=== PATIENT | female | born 1945 | race Two or more races ===

== ENCOUNTER 2025-06-10 09:10 | Emergency (ER) | payer OTHER ==
[~2025-06-10] VITALS: Ht 162.6 cm; Wt 58.8 kg
--- NOTE | 2025-06-10 09:50 | ED.PDOC ---
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 Son reports patient had went to her pre-op appointment today and was found to have an abnormal heart rate, going high and low quickly. Son relays that the patient has never been diagnosed with A-Fib. Son states they were advised to come to the ED for clearance of the patient to have her surgery performed at a later date. Patient denies any chest pain, SOB, dizziness, N/V/D, abdominal pain, or syncope. 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 Hx Family History Family History: Reviewed,noncontributory to illness Social History Smoker: Non-Smoker Alcohol: Denies ETOH Use Drugs: Denies Drug Use Lives In: Home Constitutional: denies: chills, diaphoresis, fatigue, fever, malaise, sweats, weakness, others EENTM: denies: blurred vision, double vision, ear bleeding, ear discharge, ear drainage, ear pain, ear ringing, eye pain, eye redness, hearing loss, mouth mary n, mouth swelling, nasal discharge, nose bleeding, nose congestion, nose pain, photophobia, tearing, throat pain, throat swelling, voice changes, others Respiratory: denies: cough, hemoptysis, orthopnea, SOB at rest, shortness of breath, SOB with excertion, stridor, wheezing, others Cardiovascular: denies: chest pain, dizzy spells, diaphoresis, Dyspnea on exertion, edema, irregular heart beat, left arm pain, lightheadedness, palpitations, PND, syncope, others Gastrointestinal: denies: abdomen distended, abdominal pain, blood streaked bowels, constipated, diarrhea, dysphagia, difficulty swallowing, hematemesis, melena, nausea, poor appetite, poor fluid intake, rectal bleeding, rectal pain, vomiting, others Genitourinary: denies: abnormal vagina bleeding, burning, dyspareunia, dysuria, flank pain, frequency, hematuria, incontinence, pain, , vagina discharge, urgency, others Neurological: denies: dizziness, fainting, headache, left sided numbness, left sided weakness, numbness, paresthesia, pre-existing deficit, right sided numbness, right sided weakness, seizure, speech problems, tingling, tremors, weakness, others Musculoskeletal: denies: back pain, gout, joint pain, joint swelling, muscle pain, muscle stiffness, neck pain, others Integumetry: denies: bruises, change in color, change in hair/nails, dryness, laceration, lesions, lumps, rash, wounds, others Allergic/Immunocompromised: denies: Difficulty Healing, Frequent Infections, Hives, Itching, others Hematologic/Lymphatic: denies: anemia, blood clots, easy bleeding, easy bruising, swollen glands, others Endocrine: denies: excessive hunger, excessive sweating, excessive thirst, excessive urination, flushing, intolerance to cold, intolerance to heat, unexplained weight gain, unexplained weight loss, others Psychiatric: denies: anxiety, bipolar disorder, depression, hopeless, panic disorder, schizophrenia, sleepless, suicidal, others All Other Systems: Reviewed and Negative Physical Exam General Appearance: No Apparent Distress, Normal HEENT: Normal ENT Inspection, Pharynx Normal, TMs Normal Neck: Full Range of Motion, Non-Tender, Normal, Normal Inspection Respiratory: Chest Non-Tender, Lungs Clear, No Accessory Muscle Use, No Respiratory Distress, Normal Breath Sounds Cardiovascular: No Edema, No JVD, No Murmur, No Gallop, Normal Peripheral Pulses, Regular Rate/Rhythm Breast Exam: Deferred Gastrointestinal: No Organomegaly, Non Tender, No Pulsatile Mass, Normal Bowel Sounds, Soft Genitalia: Deferred Pelvic: Deferred Rectal: Deferred Extremities: No calf tenderness, Normal capillary refill, Normal inspection, Normal range of motion, Non-tender, No pedal edema Musculoskeletal : Apperance: Normal Neurologic: Alert, clinical lab assistant II-XII nml as Tested, No Motor Deficits, Normal Affect, Normal Mood, No Sensory Deficits Cerebellar Function: Normal Reflexes: Normal Skin: Dry, Normal Color, Warm Lymphatic: No Adenopathy Was a procedure done? Was a procedure done?: No CP Differential Dx Differential Diagnosis: A-fib X-Ray, Labs, Meds, VS Vital Signs Date Time Temp Pulse Resp B/P (MAP) Pulse Ox O2 Delivery O2 Flow Rate FiO2 06/10/25 14:20 51 06/10/25 14:02 97.5 58 14 122/62 (82) 96 97.5 06/10/25 09:16 97.5 102 18 125/83 96 97.5 Lab Test 06/10/25 13:24 06/10/25 10:30 06/10/25 10:07 06/10/25 09:39 Range/Units Troponin I High Sensitivity 22 17 17 </=34 ng/L Urine Color Light-yellow Yellow Urine Clarity Clear Clear Urine pH 5.0 5.0-9.0 Urine Specific Golden 1.012 1.001-1.035 Urine Protein Negative Negative Urine Ketones 1+ H Negative Urine Blood Negative Negative /uL Urine Nitrite Negative Negative Urine Bilirubin Negative Negative Urine Urobilinogen Normal Negative mg/dL Urine Leukocyte Esterase 1+ Negative /uL Urine RBC 1 0 - 4 /hpf Urine Microscopic WBC 15 H 0-5 /HPF Urine Squamous Epithelial Cells Few <5 /hpf Urine Bacteria Few H None Seen /hpf Urine Hyaline Casts Few 0 - 2 /lpf Urine Mucus Few None Seen Urine Glucose Normal Normal mg/dL White Blood Count 5.5 4.4-10.8 10^3/uL Red Blood Count 4.54 4.0-5.20 10^6/uL Hemoglobin 14.2 12.2-16.2 g/dL Hematocrit 42.6 36.0-46.0 % Mean Corpuscular Volume 93.8 80.0-100.0 fL Mean Corpuscular Hemoglobin 31.3 28.0-32.0 pg Mean Corpuscular Hemoglobin Concent 33.3 32.0-36.0 g/dL Red Cell Distribution Width 13.4 11.8-14.3 % Platelet Count 248 140-450 10^3/uL Mean Platelet Volume 7.9 6.9-10.8 fL Neutrophils (%) (Auto) 49.6 37.0-80.0 % Lymphocytes (%) (Auto) 41.7 10.0-50.0 % Monocytes (%) (Auto) 6.8 0.0-12.0 % Eosinophils (%) (Auto) 1.2 0.0-7.0 % Basophils (%) (Auto) 0.7 0.0-2.0 % Neutrophils # (Auto) 2.7 1.6-8.6 10 ^3/uL Lymphocytes # (Auto) 2.3 0.4-5.4 10 ^3/uL Monocytes # (Auto) 0.4 0-1.3 10 ^3/uL Eosinophils # (Auto) 0.1 0-0.8 10 ^3/uL Basophils # (Auto) 0 0-0.2 10 ^3/uL Nucleated Red Blood Cells 0.1 % Sodium Level 140 136-145 mmol/L Potassium Level 4.8 3.5-5.1 mmol/L Chloride Level 103 98-107 mmol/L Carbon Dioxide Level 25 20-31 mmol/L Anion Gap 12 5-15 Blood Urea Nitrogen 42 H 9-23 mg/dL Creatinine 1.53 H 0.550-1.02 mg/dL Glomerular Filtration Rate Calc 35 >90 mL/min BUN/Creatinine Ratio 27.5 H 10.0-20.0 Serum Glucose 90 74-106 mg/dL Calcium Level 9.8 8.7-10.4 mg/dL [place] [id number] Ph: [phone] DIAGNOSTIC IMAGING Diagnostic Imaging Report : [id number] Signed PATIENT: JOSE E MARTINEZ ACCT: [id number] UNIT: [id number] : 1945 LOC: ER ROOM / BED: / AGE / SEX: 79 / F ADM STATUS: REG ER SERVICE [id number] ORDERING PHYSICIAN: LACY GALLARDO MD PROCEDURE(s): CXRP - CHEST PORTABLE REASON: abnormal heart beat ORDER NUMBER(s): [id number], ACCESSION NUMBER(s): [id number] XY CHEST PORTABLE, HISTORY: abnormal heart beat COMPARISON: XR CHEST 2 VIEW on DOS: 05/18/25, CT CHEST WO on DOS: 09/05/24, CR CH EST 2 VIEW on DOS: 08/22/24 XR CHEST 2 VIEW on DOS: 05/18/25, CT CHEST WO on DOS: 09/05/24, CR CHEST 2 VIEW on DOS: 08/22/24 TECHNICAL DATA: 1 view of the chest was obtained. FINDINGS: Lines and tubes: None Cardiomediastinal silhouette: normal Pulmonary vasculature: normal Lung expansion: normal Lung airspace: normal Lung interstitium: normal Pleura: normal Pneumothorax: no Bones: Unremarkable Other: no IMPRESSION: No acute intrathoracic abnormality. ATED BY: VISH HERNÁNDEZ MD DICTATED DATE/TIME: 06/10/251014 SIGNED BY: VISH HERNÁNDEZ MD SIGNED DATE/TIME: 06/10/251014 CC: Time of 1ST Reevaluation: 10:47 Reevaluation 1ST: Unchanged Patient Education/Counseling: Diagnosis, Treatment Family Education/Counseling: Diagnosis, Treatment SEPSIS Sepsis Screen Date sepsis recognized/suspect: Jun 10, 2025 Time Sepsis recognized/suspect: 919 Recent Procedure: No On Antibiotic Therapy: No Respiratory Rate >20: No Heart Rate >90: No Temp<36 C (96.8 F) or >38.3 C: No SBP <90 or MAP <65 mmHG: No New Acute Mental Status Change: No Is the patient on CPAP, BIPAP,: No Physician Orders Chest Portable (06/10/25 09:33) Electrocardigram (06/10/25 09:33) Electrocardigram (06/10/25 10:33) Electrocardigram (06/10/25 12:33) Vital Signs Date Time Temp Pulse Resp B/P (MAP) Pulse Ox O2 Delivery O2 Flow Rate FiO2 06/10/25 14:20 51 06/10/25 14:02 97.5 58 14 122/62 (82) 96 97.5 06/10/25 09:16 97.5 102 18 125/83 96 97.5 Laboratory Tests Test 06/10/25 09:39 White Blood Count 5.5 10^3/uL (4.4-10.8) Departure 1 Departure Time of Disposition: 14:35 (Patient with paroxysmal AFib and symptomatic bradyc ardia. We will admit patient for further workup.) Impression: Primary Impression: Paroxysmal A-fib Additional Impression: Bradycardia Disposition: ADMITTED INPATIENT Admit to: Tele Condition: Serious Critical Care Note Critical Care Time?: No Stability Stability form required: No Heart Score Heart Score: Heart Score Response (Comments) Value History Moderate Suspicious 1 EKG Repolarization Disturb 1 Age >65 2 Risk Factors >3 or Hx ASHD 2 Troponin Normal limit 0 Total 6 I personally scribed for LACY GALLARDO MD ([email or web address]) on 06/10/25 at 09:50. Electronically submitted by Pankaj Gomes ([email or web address]). I personally scribed for LACY GALLARDO MD ([email or web address]) on 06/10/25 at 10:20. Electronically submitted by Pankaj Gomes ([email or web address]). LACY GALLARDO MD Jun 10, 2025 09:50
[2025-06-10 10:03] LABS: Hematocrit 42.6 % (36.0-46.0); Hemoglobin 14.2 g/dL (12.2-16.2); Mean Corpuscular Hemoglobin 31.3 pg (28.0-32.0); Mean Corpuscular Volume 93.8 fL (80.0-100.0); Nucleated Red Blood Cells % 0.1 %
[2025-06-10 10:10] LABS: Chloride 103 mmol/L (98-107); Potassium 4.8 mmol/L (3.5-5.1); Sodium 140 mmol/L (136-145)
[2025-06-10 10:11] LABS: Anion Gap 12 (5-15); Carbon Dioxide 25 mmol/L (20-31)
[2025-06-10 10:12] LABS: Calcium 9.8 mg/dL (8.7-10.4)
[2025-06-10 10:16] LABS: Glucose 90 mg/dL (74-106)
[2025-06-10 10:17] LABS: BUN/Creatinine Ratio 27.5 (10.0-20.0); Blood Urea Nitrogen 42 mg/dL (9-23)
--- NOTE | 2025-06-10 10:17 | DVH ---
XY CHEST PORTABLE, HISTORY: abnormal heart beat COMPARISON: XR CHEST 2 VIEW on DOS: 05/18/25, CT CHEST WO on DOS: 09/05/24, CR CHEST 2 VIEW on DOS: 08/22/24 XR CHEST 2 VIEW on DOS: 05/18/25, CT CHEST WO on DOS: 09/05/24, CR CHEST 2 VIEW on DOS: 08/22/24 TECHNICAL DATA: 1 view of the chest was obtained. FINDINGS: Lines and tubes: None Cardiomediastinal silhouette: normal Pulmonary vasculature: normal Lung expansion: normal Lung airspace: normal Lung interstitium: normal Pleura: normal Pneumothorax: no Bones: Unremarkable Other: no IMPRESSION: No acute intrathoracic abnormality.
[2025-06-10 11:06] LABS: Urine Protein, UAD Negative (Negative)
[2025-06-10] MEDS ORDERED: HYDROcodone-ACET 5/325MG TAB PO ONE (16:30)
[2025-06-10] MEDS ORDERED: CEFD300C2 PO (20:01)
[2025-06-10] MEDS ORDERED: APIX5TAB PO (20:01)
--- NOTE | 2025-06-10 20:20 | DVHINCON2 ---
[facility] 06/10/25 2020: Date of service: Jun 10, [address] Mendosa Reason for Consultation Medical management History of Present Illness Mrs. Marylu Kaye is a 79 year old female with a history of DM, HLD, Hypertension who presents with a chief complaint of irregular heart rate. Son reports patient had went to her pre-op appointment today and was found to have an abnormal heart rate, going high and low quickly. Son relays that the patient has never been diagnosed with A-Fib. Patient currently with vital signs HR 76, BP 120/69, RR 16, 02 saturations 96% on room air. Patient denies any chest pain, SOB, dizziness, N/V/D, abdominal pain, or syncope. Past Medical History Diabetes mellitus type 2, hyperlipidemia, hypertension Past Surgical History none contributory Family History Reviewed non contributory Social History Smoker: Non-Smoker Alcohol: Denies ETOH Use Drugs: Denies Drug Use Lives In: Home Allergies: Coded Allergies: NO KNOWN ALLERGIES (Unverified , 06/10/25) Home Meds Active Scripts Apixaban Base (ELIQUIS) 5 Mg Tab, 5 MG PO BID for 90 Days, #180 TAB 2 Refills Prov:LIN WEISS MD 06/10/25 Cefdinir (Cefdinir) 300 Mg Cap, 1 CAP PO BID for 10 Days, #20 CAP Prov:LIN WEISS MD 06/10/25 Review of Systems Negative ROS Vital Signs Vital Signs Date Time Temp Pulse Resp B/P (MAP) Pulse Ox O2 Delivery O2 Flow Rate FiO2 06/10/25 14:20 51 06/10/25 14:02 97.5 14 122/62 (82) 96 97.5 Physical Exam HEENT pupils are reactive Neck is supple CV is S1-S2 regular rate and rhythm Respiratory diminished breath sounds bases GI positive bowel sound Extremity no edema 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 Labs/Diagnostic Data Labs Test 06/10/25 13:24 06/10/25 10:07 06/10/25 09:39 Range/Units Troponin I High Sensitivity 22 </=34 ng/L Urine Color Light-yellow Yellow Urine Clarity Clear Clear Urine pH 5.0 5.0-9.0 Urine Specific [place] 1.012 1.001-1.035 Urine Protein Negative Negative Urine Ketones 1+ H Negative Urine Blood Negative Negative /uL Urine Nitrite Negative Negative Urine Bilirubin Negative Negative Urine Urobilinogen Normal Negative mg/dL Urine Leukocyte Esterase 1+ Negative /uL Urine RBC 1 0 - 4 /hpf Urine Microscopic WBC 15 H 0-5 /HPF Urine Squamous Epithelial Cells Few <5 /hpf Urine Bacteria Few H None Seen /hpf Urine Hyaline Casts Few 0 - 2 /lpf Urine Mucus Few None Seen Urine Glucose Normal Normal mg/dL White Blood Count 5.5 4.4-10.8 10^3/uL Red Blood Count 4.54 4.0-5.20 10^6/uL Hemoglobin 14.2 12.2-16.2 g/dL Hematocrit 42.6 36.0-46.0 % Mean Corpuscular Volume 93.8 80.0-100.0 fL Mean Corpuscular Hemoglobin 31.3 28.0-32.0 pg Mean Corpuscular Hemoglobin Concent 33.3 32.0-36.0 g/dL Red Cell Distribution Width 13.4 11.8-14.3 % Platelet Count 248 140-450 10^3/uL Mean Platelet Volume 7.9 6.9-10.8 fL Neutrophils (%) (Auto) 49.6 37.0-80.0 % Lymphocytes (%) (Auto) 41.7 10.0-50.0 % Monocytes (%) (Auto) 6.8 0.0-12.0 % Eosinophils (%) (Auto) 1.2 0.0-7.0 % Basophils (%) (Auto) 0.7 0.0-2.0 % Neutrophils # (Auto) 2.7 1.6-8.6 10 ^3/uL Lymphocytes # (Auto) 2.3 0.4-5.4 10 ^3/uL Monocytes # (Auto) 0.4 0-1.3 10 ^3/uL Eosinophils # (Auto) 0.1 0-0.8 10 ^3/uL Basophils # (Auto) 0 0-0.2 10 ^3/uL Nucleated Red Blood Cells 0.1 % Sodium Level 140 136-145 mmol/L Potassium Level 4.8 3.5-5.1 mmol/L Chloride Level 103 98-107 mmol/L Carbon Dioxide Level 25 20-31 mmol/L Anion Gap 12 5-15 Blood Urea Nitrogen 42 H 9-23 mg/dL Creatinine 1.53 H 0.550-1.02 mg/dL Glomerular Filtration Rate Calc 35 >90 mL/min BUN/Creatinine Ratio 27.5 H 10.0-20.0 Serum Glucose 90 74-106 mg/dL Calcium Level 9.8 8.7-10.4 mg/dL Assessment this is a 79 yo female with a history of DM, HLD, hypertension who presents to the hospital with an irregular heart rate. Patient Troponin 17,17, 22, Na 140, K 4.8, BUN 42/1.53 , chest x ray no acute intrathoracic abnormality. Patient seen denies any chest pain, dyspnea, palpitations, abdominal pain, dizziness, headaches, nausea, vomiting. Patient HR 76, BP 120/69, 96% 02 saturations on room air, RR 16. I was called to assess patient by supervising MD Dr. Dillon. Patient reports she feels "good" and would like to go home. Problems(with codes): (1) Paroxysmal A-fib Plan/Recommendation Recommendation discharge home on Eliquis 5mg PO BID follow up with cardiology Dr. Cohn as outpatient. Discussed with patient and patient son in the ED, both verbalizes agreement and understanding of recommendation and plan. Contacted [facility] for outpatient follow up appt with cardiology. Discussed all above with supervising MD Dr. Dillon. Discussed with ED Physician Dr. Dumont. Plan discussed with: Patient, Son, Other RAI DILLON MD 06/11/25 1417: Date of service: Jun 10, 2025 Allergies: Coded Allergies: NO KNOWN ALLERGIES (Unverified , 06/10/25) Home Meds Active Scripts Apixaban Base (ELIQUIS) 5 Mg Tab, 5 MG PO BID for 90 Days, #180 TAB 2 Refills Prov:LIN WEISS MD 06/10/25 Cefdinir (Cefdinir) 300 Mg Cap, 1 CAP PO BID for 10 Days, #20 CAP Prov:LIN WEISS MD 06/10/25 [facility] Jun 10, 2025 20:20 RAI DILLON MD Jun 11, 2025 14:17
[2025-06-10 21:02] VITALS: BP 120/76; PULSE 74; RESP 20; TEMP 98; O2SAT 99
== END 2025-06-10 21:06 | disposition home or self-care (01) ==
LOC: ER 09:10
DX: I48.0 Paroxysmal atrial fibrillation (principal); R00.1 Bradycardia, unspecified; E11.9 Type 2 diabetes mellitus without complications; E78.5 Hyperlipidemia, unspecified; I10 Essential (primary) hypertension; Z79.899 Other long term (current) drug therapy
CPT/HCPCS: 36415; 71045; 80048; 81001; 84484; 85025

== ENCOUNTER 2025-06-18 18:15 | Emergency (ER) | payer OTHER ==
[~2025-06-18] VITALS: Ht 162.6 cm; Wt 56.5 kg
[~2025-06-18 18:15] MED LIST: APIX5TAB PO; CEFD300C2 PO
--- NOTE | 2025-06-18 18:43 | ECG ---
[facility] Test Date: 2025-06-18 Test Time: 18:27:49 Pat Name: JOSE E MARTINEZ Department: ER Room: Gender: F [employer] Stamping Press Operator: SURESH : 1945 Requested By: WAYLON SUAZO Order Number: [id number] Reading MD: Gulshan Iqbal Measurements Intervals Fence Rate: 55 P: 72 NJ: 154 QRS: 95 QRSD: 101 T: 5 QT: 415 QTc: 397 Interpretive Statements Sinus rhythm Right axis deviation Borderline ST elevation, lateral leads Electronically Signed On 06-19-2025 15:46:54 PST by Gulshan Iqbal Please click the below link to view image of tracing.
[2025-06-18 19:24] LABS: Hematocrit 41.2 % (36.0-46.0); Hemoglobin 13.8 g/dL (12.2-16.2); Mean Corpuscular Hemoglobin 31.1 pg (28.0-32.0); Mean Corpuscular Volume 93.0 fL (80.0-100.0); Nucleated Red Blood Cells % 0.0 %
[2025-06-18 19:37] LABS: Alanine Aminotransferase 11 U/L (7-40); Albumin 4.4 g/dL (3.2-4.8); Alkaline Phosphatase 75 U/L (46-116); Anion Gap 12 (5-15); BUN/Creatinine Ratio 15.2 (10.0-20.0); Bilirubin, Total 0.4 mg/dL (0.2-1.0); Calcium 9.8 mg/dL (8.7-10.4); Carbon Dioxide 26 mmol/L (20-31); Chloride 104 mmol/L (98-107); Magnesium 1.8 mg/dL (1.6-2.6); Sodium 142 mmol/L (136-145); Total Protein 6.9 g/dL (5.7-8.2)
[2025-06-18 19:44] LABS: Blood Urea Nitrogen 34 mg/dL (9-23); Glucose 111 mg/dL (74-106); Potassium 5.3 mmol/L (3.5-5.1)
--- NOTE | 2025-06-18 19:46 | ED.PDOC ---
HPI Comments HPI: 79 y/o F, with PMHx of HTN, HLD, and DM presents to the ED for CC of hypotension. Patient states, she has been experiencing symptoms of dizziness and poor appetite x1day. Patient reports, symptoms prompted sister to check her blood pressure which showed a hypotensive reading; unable to recall initial blood pressure at this time. Patient denies active chest pain, palpitations, nausea, vomiting, or faintness. No other symptoms or modifying factors are present at this time. Initial Vitals BP:152/59 HR:60 RR:17 O2:98% Temp:97.0 Past Medical History: HTN, HLD, DM Past Surgical History: DENIES ANY Social History: DENIES ANY Medications: SEE RX LIST Allergies: NKA MARTINEZ: DIZZY, WEAK, PER SISTER, LOW HR , LOW BP EPISODE. HPI: Poor Historian. Past Medical History: Past Surgical History: REVIEW OF SYSTEMS: CONSTITUTIONAL: Denies acute: fever, diaphoresis, chills, HEAD: Denies acute: headache, photophobia Eyes: Denies acute: Double vision, vision loss, eye pain, eye discharge. EARS: Denies acute: tinnitus, hearing loss, ear discharge, ear pain, THROAT: Denies acute: sore throat, swelling, difficulty swallowing , pain with swallowing, change in voice. NECK: Denies acute: neck pain, neck swelling, stiff neck. HEART: Denies acute : chest pain, palpitations, LUNGS: Denies acute: SOB, wheezing, cough, hemoptysis ABDOMEN: Denies acute: abdominal pain, Nausea, Vomiting, diarrhea, melena , hematemesis, hematochezia SKIN: Denies acute: rash, redness, lesions, itchiness. EXTREMITIES: Denies acute: calf pain, numbness, tingling, weakness, denies pain in extremity. Denies acute: Low back pain. Neuro: Denies acute: focal neurological deficit, motor or sensory focal neurological deficit, tremors, seizure like activity, confusion, change in mental status, loss of bowel or bladder function, cauda equina like symptoms. : Denies acute: dysuria, hematuria, flank pain, increase in urinary frequency. PSYCH: Denies acute: hallucination, suicidal ideation, homicidal ideation. FEMALE: Denies acute: abnormal vaginal bleeding, foul odor, unusual discharge. PHYSICAL EXAM: General: ----NO----acute distress, awake and alert. Head: normocephalic, atraumatic. No raccoon's eyes, no huggins sign. Neck: supple, trachea is midline, no swelling. Throat: Normal phonation. Eyes:, no erythema, no purulent discharge, no proptosis, no icterus. Heart: regular rate, regular rhythm, no significant murmur appreciated. Lungs: no apparent respiratory distress, Able to speak in full sentences. No wheezing, no rhonchi, no crackles. No stridors Clear to auscultation bilaterally. Abdomen: non tender to palpation, non distended, soft, no guarding, no rebound, + bowel sounds. Neuro: Awake, Alert, oriented to name, self, situation, follows commands GCS=15. Speech is normal. Skin: no petechia, no purpura, no cyanosis, non-pale, not jaundice. Lower extremities: --no - Pitting edema no deformity, no focal swelling, no calf TTP. Makes eye contact. moves all four extremities. Face: no apparent facial droop. Ambulating in the ED independently. ED COURSE: DISCLAIMER: This medical document was created using an electronic medical record system with voice recognition software and computerized dictation system. Although this document has been carefully reviewed, there might still be some phonetic and typographical errors. Occasional wrong-word or "sound-alike" substitutions may have occurred due to the inherent limitations of voice recognition software. These areas are purely typographical due to imperfections of the software eagle jaquez and do not reflect any compromise in the patient's medical care. Please read the chart carefully and recognize, using context, where these substitutions have occurred. Chief Complaint: General Weakness Time Seen by MD: 19:40 Reviewed Notes: Nurses Notes, Medications, Allergies Allergies: Coded Allergies: NO KNOWN ALLERGIES (Unverified , 06/10/25) Home Meds Active Scripts Apixaban Base (ELIQUIS) 5 Mg Tab, 5 MG PO BID for 90 Days, #180 TAB 2 Refills Prov:LIN WEISS MD 06/10/25 Cefdinir (Cefdinir) 300 Mg Cap, 1 CAP PO BID for 10 Days, #20 CAP Prov:LIN WEISS MD 06/10/25 Information Source: Patient, Relative (Child) Mode of Arrival: Ambulatory Severity: Moderate Timing: Hours Duration: Since onset Prehospital treatment: None Onset: At Rest Cardiac Risk Factors: Hyperlipidemia, HTN, Diabetes PE Risk Factors: None History of: None Modifying Factors: Nothing Associated Signs and Symptoms: None Was a procedure done? Was a procedure done?: No CP Differential Dx Differential Diagnosis: Other (bradycardia, hypotension) X-Ray, Labs, Meds, VS Vital Signs Date Time Temp Pulse Resp B/P (MAP) Pulse Ox O2 Delivery O2 Flow Rate FiO2 06/18/25 18:27 55 06/18/25 18:18 97.0 60 17 152/59 98 97.0 Lab Test 06/18/25 20:10 06/18/25 20:02 06/18/25 19:04 06/18/25 18:33 Range/Units Urine Color Yellow Yellow Urine Clarity Ex.turbid Clear Urine pH 5.5 5.0-9.0 Urine Specific [place] 1.022 1.001-1.035 Urine Protein 2+ H Negative Urine Ketones Trace Negative Urine Blood 1+ H Negative /uL Urine Nitrite Negative Negative Urine Bilirubin Negative Negative Urine Urobilinogen 3 H Negative mg/dL Urine Leukocyte Esterase 3+ Negative /uL Urine RBC 14 0 - 4 /hpf Urine WBC Clumps Present None Seen /hpf Urine Microscopic WBC 390 H 0-5 /HPF Urine Squamous Epithelial Cells Mod <5 /hpf Urine Calcium Oxalate Crystals Few None Seen Urine Bacteria Many H None Seen /hpf Urine Hyaline Casts Many 0 - 2 /lpf Urine Mucus Few None Seen Urine Yeast (Budding) Occasional None Seen /hpf Urine Glucose Normal Normal mg/dL Troponin I High Sensitivity 16 18 </=34 ng/L White Blood Count 6.2 4.4-10.8 10^3/uL Red Blood Count 4.43 4.0-5.20 10^6/uL Hemoglobin 13.8 12.2-16.2 g/dL Hematocrit 41.2 36.0-46.0 % Mean Corpuscular Volume 93.0 80.0-100.0 fL Mean Corpuscular Hemoglobin 31.1 28.0-32.0 pg Mean Corpuscular Hemoglobin Concent 33.4 32.0-36.0 g/dL Red Cell Distribution Width 13.8 11.8-14.3 % Platelet Count 215 140-450 10^3/uL Mean Platelet Volume 8.0 6.9-10.8 fL Neutrophils (%) (Auto) 71.3 37.0-80.0 % Lymphocytes (%) (Auto) 23.3 10.0-50.0 % Monocytes (%) (Auto) 4.8 0.0-12.0 % Eosinophils (%) (Auto) 0.2 0.0-7.0 % Basophils (%) (Auto) 0.4 0.0-2.0 % Neutrophils # (Auto) 4.4 1.6-8.6 10 ^3/uL Lymphocytes # (Auto) 1.4 0.4-5.4 10 ^3/uL Monocytes # (Auto) 0.3 0-1.3 10 ^3/uL Eosinophils # (Auto) 0 0-0.8 10 ^3/uL Basophils # (Auto) 0 0-0.2 10 ^3/uL Nucleated Red Blood Cells 0.0 % Sodium Level 142 136-145 mmol/L Potassium Level 5.3 H 3.5-5.1 mmol/L Chloride Level 104 98-107 mmol/L Carbon Dioxide Level 26 20-31 mmol/L Anion Gap 12 5-15 Blood Urea Nitrogen 34 H 9-23 mg/dL Creatinine 2.23 H 0.550-1.02 mg/dL Glomerular Filtration Rate Calc 22 >90 mL/min BUN/Creatinine Ratio 15.2 10.0-20.0 Serum Glucose 111 H 74-106 mg/dL Lactic Acid Level 1.4 0.4-2.0 mmol/L Calcium Level 9.8 8.7-10.4 mg/dL Magnesium Level 1.8 1.6-2.6 mg/dL Total Bilirubin 0.4 0.2-1.0 mg/dL Aspartate Amino Transferase (AST) 25 13-40 U/L Alanine Aminotransferase (ALT) 11 7-40 U/L Alkaline Phosphatase 75 46-116 U/L Total Protein 6.9 5.7-8.2 g/dL Albumin 4.4 3.2-4.8 g/dL POC Glucose 108 H 70-106 mg/dl Time of 1ST Reevaluation: 20:10 Reevaluation 1ST: Unchanged Time of 2ND Reevaluation: 21:38 (The case was discussed with the admitting team (HPI, physical exam, labs and diagnostic tests that were available at the time of disposition, ED course, treatment plan) on the phone. They agreed to evalute the patient and assume care of this patient from this point forward. GARY Reese. ) Patient Education/Counseling: Diagnosis, Treatment Family Education/Counseling: No Family Present SEPSIS Sepsis Screen Date sepsis recognized/suspect: Jun 18, 2025 Time Sepsis recognized/suspect: 1814 Recent Procedure: No On Antibiotic Therapy: No Respiratory Rate >20: No Heart Rate >90: No Temp<36 C (96.8 F) or >38.3 C: No SBP <90 or MAP <65 mmHG: No New Acute Mental Status Change: No Is the patient on CPAP, BIPAP,: No Physician Orders Car Tracer (06/18/25 ) Chest Portable (06/18/25 18:41) Orthostatic Vital Signs (06/18/25 ) Troponin-I Hs (06/18/25 21:41) Sodium Chloride 0.9% (06/18/25 21:00) Vital Signs Date Time Temp Pulse Resp B/P (MAP) Pulse Ox O2 Delivery O2 Flow Rate FiO2 06/18/25 18:27 55 06/18/25 18:18 97.0 60 17 152/59 98 97.0 Laboratory Tests Test 06/18/25 19:04 Lactic Acid Level 1.4 mmol/L (0.4-2.0) White Blood Count 6.2 10^3/uL (4.4-10.8) Departure 1 Departure Time of Disposition: 20:52 Impression: Primary Impression: Hypotensive episode Additional Impressions: Bradycardia Generalized weakness UTI (urinary tract infection) Acute renal failure Dehydration Disposition: ADMITTED INPATIENT Admit to: [facility] Condition: Guarded Discharged With: Self Critical Care Note Critical Care Time?: No Heart Score Heart Score: Heart Score Response (Comments) Value History Slightly Suspicious 0 EKG N/A 0 Age >65 2 Risk Factors 1 or 2 risk factors 1 Troponin N/A 0 Total 3 I personally scribed for WAYLON SUAZO DO ([email or web address]) on 06/18/25 at 19:46. Electronically submitted by Alba Hart ([email or web address]). I personally scribed for WAYLON SUAOZ DO ([email or web address]) on 06/18/25 at 19:48. Electronically submitted by Alba Hart ([email or web address]). WAYLON SUAZO DO Jun 18, 2025 19:46
--- NOTE | 2025-06-18 19:49 | DVH ---
CHEST RADIOGRAPH Indication: weak, dizzy Technique: Single frontal view of the chest was obtained Comparison: XY CHEST PORTABLE on DOS: 06/10/25 FINDINGS: Lines and Tubes: None Lungs: No focal consolidation. Right hilar soft tissue fullness. Pleura: No effusion. No pneumothorax. Cardiomediastinal contours: Heart size is within normal limits with mild atherosclerotic calcification and uncoiling of the aorta. Bones: No acute osseous abnormality. IMPRESSION: Right hilar soft tissue fullness. CT is recommended for further evaluation.
[2025-06-18 20:31] LABS: Urine Budding Yeast OCCASIONAL /hpf (None Seen); Urine Protein, UAD 2+ (Negative); Urine WBC Clumps PRESENT /hpf (None Seen)
[2025-06-18] MEDS: SODIUM CHLORIDE 0.9% 1,000 ML IV ONE (21:39)
[2025-06-18 22:31] VITALS: BP 140/72; PULSE 67; RESP 24; TEMP 97.9; O2SAT 99
--- NOTE | 2025-06-19 00:02 | DVHINCON2 ---
ALTAGRACIA BENITEZ NP 06/19/25 0002: Date of service: Jun 19, [address] Vasquez Reason for Consultation Medical management History of Present Illness 79-year-old female with past medical history of DM, hypertension, hyperlipidemia recent diagnosis of paroxysmal AFib/bradycardia presents with complaints of hypotension. Information in this HPI is acquired with the assistance of the patient's son with sitting the patient due to her being a poor historian. Patient states she had just not been feeling well with a poor appetite. Patient's son endorsed that the patient's blood pressure was checked and it was low. He is unable to recall exact numbers. On arrival to the emergency department the patient's blood pressure is 152/69 with a heart rate of 60. Patient was also recently seen here at this facility on June 10, 2025 when she was evaluated for proximal AFib. At this time she was discharged home with oral antibiotics and Eliquis. Patient endorsed that she never took the antibiotics because her PCP instructed her not to. At this time the patient denies any chest pain, shortness of breath, syncope, palpitations, nausea, vomiting, abdominal pain, hematemesis, hematochezia, melena. Past Medical History Hypertension, hyperlipidemia, DM Allergies: Coded Allergies: NO KNOWN ALLERGIES (Unverified , 06/10/25) Home Meds Active Scripts Cephalexin Monohydrate (Cephalexin) 500 Mg Cap, 1 CAP PO QID for 10 Days, #40 CAP Prov:ALTAGRACIA BENITEZ NP 06/19/25 Apixaban Base (ELIQUIS) 5 Mg Tab, 5 MG PO BID for 90 Days, #180 TAB 2 Refills Prov:LIN WEISS MD 06/10/25 Cefdinir (Cefdinir) 300 Mg Cap, 1 CAP PO BID for 10 Days, #20 CAP Prov:LIN WEISS MD 06/10/25 Review of Systems 10 systems reviewed and negative except as per HPI Vital Signs Vital Signs Date Time Temp Pulse Resp B/P (MAP) Pulse Ox O2 Delivery O2 Flow Rate FiO2 06/18/25 21:44 Room Air* 0 21 06/18/25 18:27 55 06/18/25 18:18 97.0 17 152/59 98 97.0 Physical Exam GENERAL: Patient appearing stated age, in no acute distress. HEENT: Pupils equal and reactive to light and accommodation. Extraocular muscles intact. Mucous membranes moist. Conjunctivae pink. Anicteric sclerae. LUNGS: Bilateral air entry. No wheezes, rhonchi or rales. HEART: Regular rate and rhythm. Normal S1 and S2. ABDOMEN: BS normoactive, soft, nontender, and nondistended. No CVA tenderness. EXTREMITIES: No clubbing, cyanosis, edema. No calf tenderness. Pedal pulses 2+. NEUROLOGICAL: The patient is alert and oriented times 3. CN II-XII intact. No focal deficits on gross sensory or motor examination. Labs/Diagnostic Data Labs Test 06/18/25 20:10 06/18/25 20:02 06/18/25 19:04 06/18/25 18:33 Range/Units Urine Color Yellow Yellow Urine Clarity Ex.turbid Clear Urine pH 5.5 5.0-9.0 Urine Specific [place] 1.022 1.001-1.035 Urine Protein 2+ H Negative Urine Ketones Trace Negative Urine Blood 1+ H Negative /uL Urine Nitrite Negative Negative Urine Bilirubin Negative Negative Urine Urobilinogen 3 H Negative mg/dL Urine Leukocyte Esterase 3+ Negative /uL Urine RBC 14 0 - 4 /hpf Urine WBC Clumps Present None Seen /hpf Urine Microscopic WBC 390 H 0-5 /HPF Urine Squamous Epithelial Cells Mod <5 /hpf Urine Calcium Oxalate Crystals Few None Seen Urine Bacteria Many H None Seen /hpf Urine Hyaline Casts Many 0 - 2 /lpf Urine Mucus Few None Seen Urine Yeast (Budding) Occasional None Seen /hpf Urine Glucose Normal Normal mg/dL Troponin I High Sensitivity 16 </=34 ng/L White Blood Count 6.2 4.4-10.8 10^3/uL Red Blood Count 4.43 4.0-5.20 10^6/uL Hemoglobin 13.8 12.2-16.2 g/dL Hematocrit 41.2 36.0-46.0 % Mean Corpuscular Volume 93.0 80.0-100.0 fL Mean Corpuscular Hemoglobin 31.1 28.0-32.0 pg Mean Corpuscular Hemoglobin Concent 33.4 32.0-36.0 g/dL Red Cell Distribution Width 13.8 11.8-14.3 % Platelet Count 215 140-450 10^3/uL Mean Platelet Volume 8.0 6.9-10.8 fL Neutrophils (%) (Auto) 71.3 37.0-80.0 % Lymphocytes (%) (Auto) 23.3 10.0-50.0 % Monocytes (%) (Auto) 4.8 0.0-12.0 % Eosinophils (%) (Auto) 0.2 0.0-7.0 % Basophils (%) (Auto) 0.4 0.0-2.0 % Neutrophils # (Auto) 4.4 1.6-8.6 10 ^3/uL Lymphocytes # (Auto) 1.4 0.4-5.4 10 ^3/uL Monocytes # (Auto) 0.3 0-1.3 10 ^3/uL Eosinophils # (Auto) 0 0-0.8 10 ^3/uL Basophils # (Auto) 0 0-0.2 10 ^3/uL Nucleated Red Blood Cells 0.0 % Sodium Level 142 136-145 mmol/L Potassium Level 5.3 H 3.5-5.1 mmol/L Chloride Level 104 98-107 mmol/L Carbon Dioxide Level 26 20-31 mmol/L Anion Gap 12 5-15 Blood Urea Nitrogen 34 H 9-23 mg/dL Creatinine 2.23 H 0.550-1.02 mg/dL Glomerular Filtration Rate Calc 22 >90 mL/min BUN/Creatinine Ratio 15.2 10.0-20.0 Serum Glucose 111 H 74-106 mg/dL Lactic Acid Level 1.4 0.4-2.0 mmol/L Calcium Level 9.8 8.7-10.4 mg/dL Magnesium Level 1.8 1.6-2.6 mg/dL Total Bilirubin 0.4 0.2-1.0 mg/dL Aspartate Amino Transferase (AST) 25 13-40 U/L Alanine Aminotransferase (ALT) 11 7-40 U/L Alkaline Phosphatase 75 46-116 U/L Total Protein 6.9 5.7-8.2 g/dL Albumin 4.4 3.2-4.8 g/dL POC Glucose 108 H 70-106 mg/dl Assessment - urinary tract infection - Dehydration - Acute kidney injury - MIld hyperkalemia - Bradycardia, intermittent The patient was seen and evaluated and presence of her son in the ER treatment area. The patient's chart was reviewed in this entirety, including lab work, imaging, physical assessment. During the emergency department evaluation, CBC is unremarkable. Na 142, K5.3, BUN 34, creatinine 2.23, GFR 22. L1.4, troponin 18/16. UA is positive for leukocytes 3+ WBC and bacteria. Chest x-ray was interpreted per the radiologist and reviewed for myself. Impression reads. Right Hilar soft tissue fullness. CT recommended for further evaluation. At this time, the patient is a febrile, hemodynamically stable with an oxygen saturation of 98% on room air. Orthostatic vital signs were completed and stable as documented in the EHR. At the time of my evaluation, the patient states dizziness has improved. She is without shortness of breath or chest pain. Additionally, she is able to stand independently without dizziness. While in the emergency department, the patient has been treated with 1 L normal saline and IV Rocephin. On June 10, the patient was prescribed oral antibiotics for a urinary tract infection however instructed by her PCP not to take the antibiotics. She is cur rently taking lisinopril 40 mg daily for high blood pressure and recently started on hydrochlorothiazide. Also currently taking metformin 850 mg. Given her chronic kidney disease I am recommending a follow up visit with PCP in order to reconcile her home medication and make adjustments. Plan/Recommendation Given that the patient is hemodynamically stable, is able to stand up independently without complaints of dizziness, Romberg was negative, orthostatic vital signs were negative, her oxygen saturation is stable at 98% on room air and is stating that she feels much better. Patient will be discharged home and stable condition with close outpatient follow up. O director of casework has been consulted to establish home safety follow up, [facility] BMP, follow up on UTI / urine cultures, and chest x-ray. The patient will also be scheduled for outpatient follow up with nephrology given her current renal function. I did send a prescription for Keflex oral anabiotic's for her UTI. At this time, the patient is already scheduled for a follow up appointment with cardiology on June 26 for Govind ycardia / proximal a fib. The patient and her son Estuardo, who is sitting next to her are provided with strict ER precautions, including, but not limited to fevers, chills, dizziness, syncope, shortness of breath, chest pain, palpitations, nausea, vomiting, back pain, leg swelling. If any of these occur return to the nearest emergency department for further evaluation and treatment. This case was reviewed in its entirety with supervising physician Dr. Atwood who assisted with the formulation of plan of care Plan discussed with: Patient, Lasha IVA VU MD 06/19/25 1346: Allergies: Coded Allergies: NO KNOWN ALLERGIES (Unverified , 06/10/25) Home Meds Active Scripts Cephalexin Monohydrate (Cephalexin) 500 Mg Cap, 1 CAP PO QID for 10 Days, #40 CAP Prov:ALTAGRACIA BENITEZ NP 06/19/25 Apixaban Base (ELIQUIS) 5 Mg Tab, 5 MG PO BID for 90 Days, #180 TAB 2 Refills Prov:LIN WEISS MD 06/10/25 Cefdinir (Cefdinir) 300 Mg Cap, 1 CAP PO BID for 10 Days, #20 CAP Prov:LIN WEISS MD 06/10/25 Additional Comments Additional Comments Additional Comments Patient's chart is reviewed and discussed with the nurse practitioner. Patient is seen and evaluated and discharge from ER by LEATHER CUTTER. I agree with his evaluation, documentation, assessment and care plan as outlined. ALTAGRACIA BENITEZ NP Jun 19, 2025 00:02 IVA VU MD Jun 19, 2025 13:46
[2025-06-19] MEDS ORDERED: CEFD300C2 PO (00:04)
[2025-06-19] MEDS ORDERED: CEPH500C PO (04:46)
== END 2025-06-19 00:35 | disposition home or self-care (01) ==
LOC: ER 18:15
DX: I95.9 Hypotension, unspecified (principal); N39.0 Urinary tract infection, site not specified; R00.1 Bradycardia, unspecified; R53.1 Weakness; E86.0 Dehydration; I12.9 Hypertensive chronic kidney disease with stage 1 through stage 4 chronic kidney disease, or unspecified chronic kidney disease; E11.22 Type 2 diabetes mellitus with diabetic chronic kidney disease; N18.9 Chronic kidney disease, unspecified; E78.5 Hyperlipidemia, unspecified; Z79.84 Long term (current) use of oral hypoglycemic drugs; Z79.01 Long term (current) use of anticoagulants; Z79.899 Other long term (current) drug therapy
CPT/HCPCS: 36415; 71045; 80053; 81001; 82947; 83605; 83735; 84484; 85025; 93005; 96365; 96366; 99285; J0696; J7030; 82962